=== PATIENT | female | born 1965 | race Caucasian/White ===

== ENCOUNTER → 2018-12-08 | Outpatient (CLI) | payer OTHER, MEDICARE | END | disposition home or self-care (01) | LOC: LABWHC1 12:30 | PROVIDERS: ATTEND Family Medicine | DX: R31.21 Asymptomatic microscopic hematuria (principal) | CPT/HCPCS: 36415; 82565; 84520 ==

== ENCOUNTER 2019-06-05 08:45 | Day surgery (SDC) | payer MEDICARE, OTHER ==
[2019-05-31 16:47] VITALS: BMI 25.4
[~2019-06-05 08:45] MED LIST: LACTATED RINGERS 1,000 ML IV SCH
[2019-06-05 09:10] VITALS: RESP 16; TEMP 97.1
[2019-06-05] MEDS ORDERED: LIDOCAINE 1% 20 ML VIAL (10MG/ML) FOR IV START INTRADERMA ONE (09:10)
[2019-06-05] MEDS ORDERED: PROPOFOL 10 MG/ML 20 ML VIAL IV ONE (09:46)
[2019-06-05] MEDS ORDERED: LIDOCAINE 1% INJ 10MG/ML (20 ML MDV) ONE (09:46)
--- NOTE | 2019-06-05 09:49 | P.GSHP ---
History of Present Illness H&P Date: 06/05/19 Chief Complaint: Screening colonoscopy This a 53-year-old female who presents today for screening colonoscopy. Patient denies a significant GI complaints. Past Medical History Past Medical History: Hypertension Additional Past Medical History / Comment(s): Osteoporosis History of Any Multi-Drug Resistant Organisms: None Reported Past Surgical History: Bladder Surgery, Cholecystectomy, Hysterectomy Additional Past Surgical History / Comment(s): 1966 surgery for reflux. Patrick Bunions. Nephrostotomy Tube, Bladder Suspension. Lt Rotator cuff, bicep surg. Lt shoulder surg. Rt 3rd toe surg. Cystoscopy w/ Sacrocolpopexy robotic surg,w/ Lysis of Adhesions. Past Anesthesia/Blood Transfusion Reactions: No Reported Reaction, Motion Sickness Smoking Status: Never smoker - Past Family History Father Family Medical History: Cancer Additional Family Medical History / Comment(s): Skin, Prostate CA Mother Family Medical History: Cancer Additional Family Medical History / Comment(s): Breast CA Medications and Allergies Home Medications Medication Instructions Recorded Confirmed Type Acetaminophen [Tylenol Extra 500 - 1,000 mg PO Q6H PRN 05/31/19 06/05/19 History Strength] Bisoprolol-Hctz 5-6.25 mg [Ziac 1 tab PO DAILY 05/31/19 06/05/19 History 5-6.25 MG] Lisinopril [Zestril] 20 mg PO DAILY 05/31/19 06/05/19 History Raloxifene [Evista] 60 mg PO DAILY 05/31/19 06/05/19 History Topiramate [Topamax] 100 mg PO BID 05/31/19 06/05/19 History Vitafusion Calcium,Vitamind 2 dose PO DAILY 05/31/19 06/05/19 History Allergies Allergy/AdvReac Type Severity Reaction Status Date / Time No Known Allergies Allergy Verified 06/05/19 09:10 Surgical - Exam Vital Signs Temp Pulse Resp BP Pulse Ox 97.1 F L 77 16 99/65 100 06/05/19 09:08 06/05/19 09:08 06/05/19 09:08 06/05/19 09:08 06/05/19 09:08 - General well developed, well nourished, no distress - Eyes PERRL - ENT normal pinna - Neck no masses - Respiratory normal expansion - Cardiovascular Rhythm: regular - Abdomen Abdomen: soft, non tender Assessment and Plan Assessment: We'll perform screening colonoscopy.
[2019-06-05 10:30] VITALS: BP 104/71; PULSE 70
--- NOTE | 2019-06-05 11:17 | P.OP ---
Date of Procedure: 06/05/19 Preoperative Diagnosis: Screening colonoscopy Postoperative Diagnosis: Normal colon Procedure(s) Performed: Colonoscopy Anesthesia: MAC Surgeon: Andrés Liz Pathology: none sent Condition: stable Disposition: PACU Description of Procedure: PROCEDURE: The patient was placed on the endoscopy table in the lateral position. Digital rectal examination was performed which revealed no abnormalities. Flexible colonoscope was then placed in the patient's anus and passed throughout the entire colon. The ileocecal valve was visualized. The cecum, ascending, transverse, descending and sigmoid colon were normal. The rectum was normal as well. There were no masses, polyps or diverticula noted in the entire colon.
== END 2019-06-05 10:40 | disposition home or self-care (01) ==
LOC: ORWHC2ENDO 08:45
PROVIDERS: ATTEND Surgery
DX: Z12.11 Encounter for screening for malignant neoplasm of colon (principal); I10 Essential (primary) hypertension; G43.909 Migraine, unspecified, not intractable, without status migrainosus; M81.0 Age-related osteoporosis without current pathological fracture; Z90.49 Acquired absence of other specified parts of digestive tract; Z80.3 Family history of malignant neoplasm of breast; Z80.42 Family history of malignant neoplasm of prostate; Z80.8 Family history of malignant neoplasm of other organs or systems; Z79.899 Other long term (current) drug therapy
CPT/HCPCS: J2001; J2704; G0121